=== PATIENT | female | born 2000 | race Hispanic/Latino ===

== ENCOUNTER 2019-09-01 20:00 | Emergency (ER) | payer OTHER ==
[~2019-09-01] VITALS: Ht 162.6 cm; Wt 88.5 kg
[~2019-09-01 20:00] MED LIST: PROVERA10 MG PO
--- OUTSIDE RECORDS SUMMARY | 2019-09-01 20:02 | XMS REPORT ---
[facility] Address Unknown Phone Unavailable Care Team Providers Care Geospatial Information Technologist Name Role Phone NONSTAFF PP Unavailable Problems This patient has no known problems. Allergies, Adverse Reactions, Alerts This patient has no known allergies or adverse reactions. Medications Ordered Medication Name Filled Medication Name Start Date Stop Date Current Medication? Ordering Clinician Indication Dosage Frequency Signature (SIG) Comments Components Medroxyprogesterone Acetate (Provera) 10 Mg Tablet Medroxyprogesterone Acetate (Provera) 10 Mg Tablet 2019-08-04 00:00:00 Yes Rhiannon Hair Md 10 Daily Encounters Start Date/Time End Date/Time Encounter Type Admission Type Attending Clinicians Care Facility Care Department Encounter ID 2019-08-04 19:30:00 2019-08-04 20:47:[address] [facility] [id number]
== END 2019-09-01 21:10 | disposition home or self-care (01) ==
LOC: FSED 20:00
DX: N93.8 Other specified abnormal uterine and vaginal bleeding (principal)
CPT/HCPCS: 80053; 81003; 81025; 85025; 99283